=== PATIENT | female | born 1950 | race Caucasian/White ===

== ENCOUNTER → 2019-02-06 | Outpatient (CLI) | payer MEDICARE, OTHER ==
--- NOTE | 2019-02-06 16:25 | Diagnostic Imaging Report ---
EXAMINATION: Left knee at 04:10 p.m. INDICATION: Left knee pain. FINDINGS: Three views were obtained. There are no prior studies available for comparison. There is no fracture, dislocation, or acute bony abnormality evident. There is moderate narrowing of the medial compartment of the knee joint and the patellofemoral space. The lateral compartment shows only mild narrowing. The soft tissues are unremarkable. IMPRESSION: 1. There is no evidence for an acute bony abnormality. 2. 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 Dictated by: Dictated on workstation # [id number]
== END ==
LOC: RAD FS 15:59
PROVIDERS: ATTEND Family Medicine
DX: M17.12 Unilateral primary osteoarthritis, left knee (principal)
CPT/HCPCS: 73562

== ENCOUNTER → 2019-12-19 | Outpatient (CLI) | payer MEDICARE, OTHER ==
--- NOTE | 2019-12-19 15:43 | Diagnostic Imaging Report ---
INDICATION: Menopausal COMPARISON: None FINDINGS: AP Spine L1-L4: [BMD (g/cm2): 0.977] [T-Score: -1.9] [Z-Score: -0.3] [BMD Previous: NA] [BMD % Change: NA] LT Hip Neck: [BMD (g/cm2): 0.788] [T-Score: -1.8] [Z-Score: -0.2] LT Hip Total: [BMD (g/cm2):0.883] [T-Score:-1.0] [Z-Score: 0.4] [BMD Previous: NA] [BMD % Change: NA] RT Hip Neck: [BMD (g/cm2):0.758] [T-Score:-2.0] [Z-Score:-0.4] RT Hip Total: [BMD (g/cm2):0.884] [T-score:-1.0] [Z-Score:0.4] [BMD Previous:NA] [BMD % Change:NA] *Indicates significant change from prior examination based on 95% confidence level. World Health Organization criteria for BMD interpretation classify patients as Normal (T-score at or above -1.0), Osteopenic (T-score between -1.0 and -2.5) or Osteoporotic (T-score at or below -2.5). LIMITATIONS AND MODIFICATION: None. FRACTURE RISK (FRAX SCORE): The ten year probability of (%): Major Osteoporotic Fracture: [NA] Hip Fracture: [NA] IMPRESSION: 1. 2. 3. See below National Osteoporosis Foundation guidelines on when to potentially initiate pharmacologic therapy. Based on the National Osteoporosis Foundation Guidelines, pharmacologic treatment should be initiated in any of the following, unless clinical conditions suggest otherwise: * Any patient with prior fragility fracture of the hip or vertebrae. A spine fracture indicates 5X risk for subsequent spine fracture and 2X risk for subsequent hip fracture. * Osteoporosis (T-score <-2.5). * Postmenopausal women and men age 50 and older with low bone mass/osteopenia (T-score between -1.0 and -2.5) by DXA and 10-year major osteoporotic fracture greater than 20% or a 10-year probability of hip fracture greater than 3%. These fracture risks are supplied above in the FRAX score, if applicable. * Clinician judgement and/or patient preferences may indicate treatment for people with 10-year fracture probabilities above or below these levels. Dictated by: Dictated on workstation # [id number]
== END ==
LOC: RAD 14:23
PROVIDERS: ATTEND Family Medicine
DX: Z13.820 Encounter for screening for osteoporosis (principal); Z78.0 Asymptomatic menopausal state
CPT/HCPCS: 77080

== ENCOUNTER → 2020-06-13 | Outpatient (CLI) | payer MEDICARE, OTHER ==
--- NOTE | 2020-06-13 09:53 | Diagnostic Imaging Report ---
INDICATION: Right 4th finger pain. There are significant degenerative changes involving multiple DIP joints. In particular, the 3rd and 4th DIP joints show marked degenerative changes. There may be osseous erosive changes present of the 3rd and 4th DIP joints. No fractures are seen. PIP joints appear intact. MCP joints are intact. Carpus is unremarkable apart from degenerative changes at the 1st CMC joint. IMPRESSION: Significant DIP joint degenerative changes, most severe at the 4th finger. There is questionable osseous erosive changes which can be seen within inflammatory arthritides. No fractures are seen. Dictated by: Dictated on workstation # [id number]
== END ==
LOC: RAD FS 09:02
PROVIDERS: ATTEND Nurse Practitioner
DX: M19.041 Primary osteoarthritis, right hand (principal)
CPT/HCPCS: 73140